=== PATIENT | female | born 1940 | race Caucasian/White ===

== ENCOUNTER 2017-04-15 09:54 | Outpatient (CLI) | payer MEDICARE ==
--- NOTE | 2017-04-15 14:43 | MRI ---
MRI RIGHT SHOULDER WITHOUT CONTRAST: Date: 04/15/17 HISTORY: Right shoulder pain, rotator cuff tear, M25.511. COMPARISON: None. FINDINGS: Biceps Tendon: Extraarticular biceps tendon is normal. Mild interarticular biceps tendinosis. Glenoid Labrum: Intact. Rotator Cuff: There is mild tendinosis of the supraspinatus and infraspinatus tendons. There is a focal hidden int erstitial tear of the mid fiber supraspinatus footplate involving the majority of the fibers in the transverse dimension, although does not appear to reach the articular bursal surface. This is 5.0 mm in AP dimension. Subscapularis is mildly tendinotic. Teres minor is intact. Bones: Mild osteoarthritic disease of acromioclavicular joint. The acromion is Type II. Mild lateral downsl oping of the acromion with narrowing of subacromial space approximately 5.0 mm. Soft Tissues: Mild subacromial/subdeltoid bursal effusion. No adenopathy of the axilla. Muscles: Muscle signal and bulk is normal. IMPRESSION: 1. Mild lateral downsloping of the acromion causing some subacromial impingement and narrowing of t he subacromial space 5.0 mm. There is subsequent tendinosis and fraying of the myotendinous junction and supraspinatus tendon with mild subacromial/subdeltoid bursal effusion. 2. Near full thickness hidden interstitial tear of the mid fiber supraspinatus tendon measuring 5.0 mm in AP dimension at the supraspinatus footplate. POS: [facility]
== END 2017-04-15 09:55 | disposition home or self-care (01) ==
LOC: MRI 09:54
PROVIDERS: ATTEND Orthopaedic Surgery Hand Surgery
DX: M25.511 Pain in right shoulder (principal); M25.811 Other specified joint disorders, right shoulder; S46.811A Strain of other muscles, fascia and tendons at shoulder and upper arm level, right arm, initial encounter; M25.411 Effusion, right shoulder

== ENCOUNTER 2017-10-17 16:09 | Observation (INO) | payer MEDICARE ==
--- NOTE | 2017-10-17 16:40 | RAD ---
RADIOGRAPH CHEST 1 VIEW: 10/17/17 HISTORY: 77-year-old female with acute chest pain and tachycardia. FINDINGS: There is no air space density, pulmonary edema, or pneumothorax. The lateral costophrenic angles are sharp. IMPRESSION: No acute pulmonary findings. hui [] POS: [facility]
[2017-10-17 16:43] LABS: Hemoglobin 14.7 g/dL (12.0-16.0); Mean Corpuscular HGB CONC 33.7 g/dL (32.0-36.0); Mean Corpuscular Hemoglobin 35.3 pg (27.0-31.0); Mean Platelet Volume 7.5 fL (7.4-10.4); Platelet Count 205 thou/uL (130-400); RBC Distribution Width 11.7 % (11.5-14.5); Red Blood Cell (RBC) Count 4.17 mill/uL (4.20-5.40); White Blood Cell (WBC) Count 7.5 thou/uL (4.8-10.8)
[2017-10-17 16:50] LABS: INR-International Normal Ratio 1.1; PTT 28.1 SEC (22.9-36.1); Prothrombin Time 13.9 SEC (12.0-14.7)
[2017-10-17 16:59] LABS: ALT (SGPT) 17 U/L (8-55); AST (SGOT) 19 U/L (5-34); Albumin 3.8 g/dL (3.4-4.8); Alkaline Phosphatase 56 U/L (40-150); Anion Gap 15 mmol/L (10-20); BUN (Urea Nitrogen) 13 mg/dL (9.8-20.1); Bilirubin, Total 0.4 mg/dL (0.2-1.2); CK (CPK) 71 U/L (29-168); Calc. Creatinine Clearance 0 mL/min (70-130); Calcium 9.4 mg/dL (7.8-10.44); Carbon Dioxide 21 mmol/L (23-31); Chloride 107 mmol/L (98-107); Estimated GFR-MDRD 78; Globulin 3.1 g/dL (2.4-3.5); Glucose 117 mg/dL (83-110); Potassium 3.8 mmol/L (3.5-5.1); Protein, Total 6.9 g/dL (6.0-8.3); Sodium 139 mmol/L (136-145)
[2017-10-17 17:02] LABS: CKMB 1.3 ng/mL (0-6.6); Troponin I Less than 0.010 ng/mL (< 0.028)
[2017-10-17 17:04] LABS: #Basophils 0.1 thou/uL (0.0-0.2); #Eosinphils 0.3 thou/uL (0.0-0.7); #Lymphocytes 2.5 thou/uL (1.20-3.40); #Monocytes 0.7 thou/uL (0.11-0.59); #Neutrophils 3.9 thou/uL (1.40-6.50); %Basophils 0.9 % (0.0-1.0); %Eosinophils 4.6 % (0.0-10.0); %Lymphocytes 32.9 % (21.0-51.0); %Monocytes 9.2 % (0.0-10.0); %Neutrophils 52.4 % (42.0-75.0); MDiff Complete? YES; Macrocytosis SLIGHT = 6-15 cells (100X) (0-5/hpf); PLT Morphology Comment Appears Adequate
[2017-10-17] MEDS ORDERED: Ondansetron ODT 4 MG TAB ONE (17:19)
[2017-10-17] MEDS ORDERED: Acetaminophen 325 MG TAB PO PRN (19:32)
[2017-10-17] MEDS ORDERED: Ondansetron ODT 4 MG TAB PO PRN (19:32)
[2017-10-17] MEDS ORDERED: Ondansetron HCl/PF 4 MG/2 ML Vial IVP PRN (19:32)
[2017-10-17] MEDS ORDERED: Enoxaparin Sodium 40 MG/0.4 ML SYRINGE SC SCH (19:45)
[2017-10-17] MEDS ORDERED: Metoprolol Tartrate 50 MG TAB PO SCH (19:45)
[2017-10-17] MEDS: Famotidine 20 MG TAB PO SCH (19:49)
[2017-10-17] MEDS: Nitroglycerin 2% Ointment 1 INCH/1 GM Packet TOP SCH (21:45)
[2017-10-17 21:54] VITALS: BMI 31.4
[2017-10-17 23:14] LABS: CKMB 1.5 ng/mL (0-6.6); Troponin I 0.012 ng/mL (< 0.028)
[2017-10-18 00:21] LABS: CKMB 1.4 ng/mL (0-6.6); Troponin I Less than 0.010 ng/mL (< 0.028)
[2017-10-18 04:54] LABS: #Basophils 0.1 thou/uL (0.0-0.2); #Eosinphils 0.4 thou/uL (0.0-0.7); #Lymphocytes 2.6 thou/uL (1.20-3.40); #Monocytes 0.7 thou/uL (0.11-0.59); #Neutrophils 2.9 thou/uL (1.40-6.50); %Basophils 1.1 % (0.0-1.0); %Eosinophils 6.1 % (0.0-10.0); %Lymphocytes 39.6 % (21.0-51.0); %Monocytes 10.1 % (0.0-10.0); %Neutrophils 43.2 % (42.0-75.0); Hemoglobin 14.5 g/dL (12.0-16.0); Mean Corpuscular HGB CONC 34.4 g/dL (32.0-36.0); Mean Corpuscular Hemoglobin 35.6 pg (27.0-31.0); Mean Platelet Volume 8.2 fL (7.4-10.4); Platelet Count 187 thou/uL (130-400); RBC Distribution Width 11.8 % (11.5-14.5); Red Blood Cell (RBC) Count 4.09 mill/uL (4.20-5.40); White Blood Cell (WBC) Count 6.6 thou/uL (4.8-10.8)
[2017-10-18 05:15] LABS: Anion Gap 11 mmol/L (10-20); BUN (Urea Nitrogen) 12 mg/dL (9.8-20.1); Calc. Creatinine Clearance 94 mL/min (70-130); Calcium 9.1 mg/dL (7.8-10.44); Carbon Dioxide 24 mmol/L (23-31); Cardiac Risk 3.7 (Less than 4.5); Chloride 108 mmol/L (98-107); Cholesterol 151 mg/dl (< 200 Desired); Estimated GFR-MDRD 86; Glucose 100 mg/dL (83-110); HDL Cholesterol 41 mg/dL (>60 Neg Risk); LDL Cholesterol, Calculated 97 mg/dL; Magnesium 1.8 mg/dL (1.6-2.6); Potassium 3.9 mmol/L (3.5-5.1); Sodium 139 mmol/L (136-145); Triglycerides 67 mg/dL (Less than 150)
[2017-10-18] MEDS: Nitroglycerin 2% Ointment 1 INCH/1 GM Packet TOP SCH ×4 (05:27→19:57)
[2017-10-18] MEDS ORDERED: Naproxen 500 MG TAB PO PRN (09:48)
[2017-10-18] MEDS: Metoprolol Tartrate 25 MG TAB PO SCH ×4 (11:02→19:34)
[2017-10-18] MEDS: Famotidine 20 MG TAB PO SCH ×2 (11:03→19:44)
[2017-10-18] MEDS: Aspirin 325 MG TAB PO SCH (11:04)
--- NOTE | 2017-10-18 12:18 | PDOC.PN ---
- Subjective Encounter Start Date: 10/18/17 Encounter Start Time: 10:15 Pt did well overnight, no further tachyarrhythmias/afib, no Chest pressure, labs reviewed. Discussed briefly with Dr Billings, he has not seen th epatient yet, but based on available data, wants to proceed with stress testing No f/C, no N/v/D/C, no Cp or SOB 10 point ROS performed and neg for all systems except as per hPI - Objective Resuscitation Status: Resuscitation Status FULL:Full Resuscitation Vital Signs & Weight: Vital Signs (12 hours) Temp Pulse Resp BP BP Pulse Ox 10/18/17 11:35 97.9 F 62 16 122/60 93 L 10/18/17 07:58 97.8 F 60 16 10/18/17 07:36 97.4 F L 59 L 16 116/64 95 10/18/17 04:10 97.8 F 60 16 103/59 L 93 L Weight Weight 182 lb 12.8 oz I&O: 10/17/17 10/18/17 10/19/17 06:59 06:59 06:59 Intake Total 240 Output Total 325 800 Balance -85 -800 Result Diagrams: 10/18/17 04:06 10/18/17 04:05 EKG Reviewed by me: Yes Phys Exam - Physical Examination Constitutional: NAD HEENT: PERRLA, moist MMs, sclera anicteric, oral pharynx no lesions Neck: no nodes, no JVD, supple, full ROM Respiratory: no wheezing, no rales, no rhonchi, clear to auscultation bilateral Cardiovascular: RRR, no significant murmur, no rub Gastrointestinal: soft, non-tender, no distention, positive bowel sounds Musculoskeletal: no edema, pulses present Neurological: non-focal, normal sensation, moves all 4 limbs Lymphatic: no nodes Psychiatric: normal affect, A&O x 3 Skin: no rash, normal turgor, cap refill <2 seconds Dx/Plan (1) Paroxysmal A-fib Code(s): I48.0 - PAROXYSMAL ATRIAL FIBRILLATION Status: Acute Comment: in NSR since admitm neg biomarkers, nuc stress ordered, resting today, apparently stress in AM (2) Atrial fibrillation with RVR Code(s): I48.91 - UNSPECIFIED ATRIAL FIBRILLATION Status: Acute Comment: back in NSR overnight, on metoprolol. Held metoprolol for stress testing (3) Chest pain Code(s): R07.9 - CHEST PAIN, UNSPECIFIED Status: Acute Qualifiers: Chest pain type: precordial pain Qualified Code(s): R07.2 - Precordial pain (4) HTN (hypertension) Code(s): I10 - ESSENTIAL (PRIMARY) HYPERTENSION Status: Acute Qualifiers: Hypertension type: essential hypertension Qualified Code(s): I10 - Essential (primary) hypertension (5) Injury of left rotator cuff Code(s): S46.002A - UNSP INJ MUSC/TEND THE ROTATOR CUFF OF L SHOULDER, INIT Status: Chronic Qualifiers: Encounter type: initial encounter Qualified Code(s): S46.002A - Unspecified injury of muscle(s) and tendon(s) of the rotator cuff of left shoulder, initial encounter - Plan cont current plan of care, out of bed/ambulate * .
--- NOTE | 2017-10-18 15:34 | HP ---
PRIMARY CARE PHYSICIAN: Ephraim Tomas M.D. TIME OF SERVICE: 18:10. CHIEF COMPLAINT: Chest pain and palpitations. HISTORY OF PRESENT ILLNESS: Ms. Schmitt is a pleasant 77-year-old white female with history of debbie nary artery disease and "angina" explained to her by her primary care physician. She also has a hist ory of hypertension and a right rotator cuff injury. She presented to the Emergency Department today after having a chest discomfort. She stated she was walking up her stairs and had acute onset of pa lpitations in her chest and a pressure sensation in the upper chest. It radiated up into her left ja w and down into her left arm. She noted she had an increased heart rate. It stopped when she came t o the Emergency Department, but did persist for some time. 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 The timing is dehydrated. She called the EMS who noted that her heart rate was elevated in the 140s dropping down to 75 and peg k up to 145. She was noted to be in atrial fibrillation with RVR and put her back to normal sinus rh ythm. The patient took 2 sublingual nitroglycerins at home, she was given 1 liter of normal saline a nd 324 mg of aspirin, and she was brought to the Emergency Department for workup. On arrival here, she was caught on EKG, both in AFib with RVR and in sinus rhythm. She did have palp itations. She denies any recent bleeding. No sweats, no diaphoresis, no nausea or vomiting. We called for admit. The ER workup was unremarkable. PAST MEDICAL HISTORY: 1. Coronary artery disease. 2. Angina. 3. Hypertension. 4. Right rotator cuff injury. 5. Bone spurs in multiple joints. PAST SURGICAL HISTORY: Include; 1. Bladder lift in the s. 2. Cholecystectomy in the s. 3. Hysterectomy in 1968. MEDICATIONS: 1. Lisinopril 20 mg daily. 2. Atenolol 25 mg p.o. daily. 2. Nitroglycerin sublingual 0.4 mg as needed. 3. Vitamin D3 and vitamin B12 daily. ALLERGIES: CEFPROZIL causes a rash; HYDROCODONE causes a rash; FLU VACCINE causes a rash and PENICIL DELANEY causes a rash, all these were many years ago. FAMILY HISTORY: Significant for dad with coronary artery disease that began in 60s, but at age 86. Her mom noted to be 92. SOCIAL HISTORY: Significant for daily alcohol use in the terms of 2-3 normal size glasses of wine. No IV drug use or tobacco abuse. REVIEW OF SYSTEMS: A 10-point review of systems was performed as negative for all systems except as stated as above. PHYSICAL EXAMINATION: VITAL SIGNS: Temperature 98.6, current pulse 71, blood pressure 121/47, respiratory rate 20 and satt ing 94% on room air. GENERAL: She is awake. She is alert and oriented. She is an obese white female who is in no distre ss. HEENT: Normocephalic and atraumatic. Pupils are equal and reactive to light bilaterally, she wears glasses with bifocals. Mucosa is moist. There is no visible lesion or thrush. NECK: Supple. There is no lymphadenopathy, JVD or thyromegaly. CARDIOVASCULAR: She has normal carotids without bruits. LUNGS: Clear bilaterally. No wheezes, no rales, no rhonchi. Good air movement. She has symmetrica l chest excursion. No prolonged expiratory phase. ABDOMEN: Soft. It is nontender and nondistended. She has good bowel sounds present in all 4 quadra nts. No rebound, rigidity or guarding. EXTREMITIES: Showed no cyanosis or clubbing with trace pedal edema. The patient has 1+ dorsalis ped is and posterior tibial pulses. SKIN: Warm and well perfused. She has no other rashes or lesions. MUSCULOSKELETAL: Normal to inspection. Large joints appear uninflamed. There are no palpable effus ions. She does have crepitus present to the right and left shoulders, right more than left. NEUROLOGIC: Cranial nerves II-XII are grossly intact. She has no focal neurologic deficits. She last s normal speech pattern, 5/5 strength in all 4 extremities. LABORATORY AND IMAGING DATA: Sodium 139, potassium 3.8, chloride 107, bicarb 21, BUN 13, creatinine 0.73, glucose 117 and calcium of 9.4. Liver functions are completely within normal limits. CBC showed a white count of 7.5 with normal differential, hemoglobin IS 14.7, hematocrit of 43.6 and platelet count is 205,000. Her BNP was normal at 48.9, CK-MB normal at 1.3 and troponin I undetectab le, at less than 0.010. INR is 1.1. Chest x-ray showed no acute cardiopulmonary disease. EKG first showed atrial fibrillation with rapid ventricular response, then converted back to sinus rhythm, but sinus rhythm and EKG did look like th ere might be varied conduction block. ASSESSMENT: 1. New onset atrial fibrillation. 2. Atrial fibrillation with rapid ventricular response. 3. Precordial chest pain. 4. Paroxysmal atrial fibrillation. 5. Hypertension. 6. Right rotator cuff injury, old. 7. Obesity. PLAN: We will place the patient in observation, get serial cardiac biomarkers tonight and place her on beta emma with metoprolol 25 b.i.d., oxygen 2 liters continuous, nitro paste one-half inch to t he chest wall and aspirin daily. We will ask Cardiology to evaluate to help us decide which directio n to go should her biomarkers be negative. We will continue other home medications including atenolol and we will reevaluate in the morning.
--- NOTE | 2017-10-18 17:04 | CON ---
CARDIOLOGY CONSULTATION NOTE DATE OF CONSULTATION: 10/18/2017 REASON FOR CONSULTATION: Chest pain and palpitations. HISTORY OF PRESENT ILLNESS: Ms. Schmitt is a very pleasant 77-year-old white fwho comes to the hosp ital for chest pain and palpitations. She had an episode of chest pain, it radiated to the neck. Satish vega felt heart racing as well, so she decided to come into the ER for this. She was found to be in Flo b with RVR and she was found to have a heart rate in the 140s in AFib and she received 2 sublingual n itros and normal saline as well as an aspirin and then her heart suddenly converted back into sinus r hythm with resolution of all her symptoms. She tells me that she had a similar episode about 3 weeks ago that lasted about 20 minutes and since it went away and so she did not think much of it, but thi s time because it lasted for much longer, she decided to come in for evaluation. PAST MEDICAL HISTORY: 1. Hypertension. 2. Rotator cuff injury. 3. Bone spurs in the past. 4. Coronary artery disease; however, she tells me she has never seen a materials planner before. PAST SURGICAL HISTORY: 1. Bladder lift in the 80s. 2. Cholecystectomy. 3. Hysterectomy. OUTPATIENT MEDICATIONS: Include; 1. Lisinopril 20 mg a day. 2. Atenolol 25 mg a day. 3. Nitroglycerin sublingual p.r.n. 4. Vitamin D3. 5. Vitamin B12. ALLERGIES: 1. CEFPROZIL. 2. HYDROCODONE. 3. FLU VACCINE. 4. PENICILLIN. These all cause a rash. FAMILY HISTORY: Positive for coronary artery disease in father in the 60s. SOCIAL HISTORY: 2 to 3 glasses of wine a day. No drug or tobacco use. REVIEW OF SYSTEMS: A 12-point review of systems was done and is also negative unless stated in the h istory of present illness. PHYSICAL EXAMINATION: VITAL SIGNS: Temperature 97.7, pulse 63, respiratory rate 16, satting 94% on room air and blood pres sure 108/53. GENERAL: Awake, alert and oriented x3, in no distress. HEENT: Normocephalic and atraumatic. NECK: Supple. LUNGS: Clear. CARDIOVASCULAR: S1 and S2. No S3 or S4. No murmurs, no rubs. ABDOMEN: Soft with positive bowel sounds. EXTREMITIES: No edema. SKIN: Warm and dry. LABORATORY WORK: Reviewed. CBC unremarkable. Coags were normal. Chemistries were unremarkable. T roponin is negative x3, BNP was 41, triglycerides of 67, cholesterol total of 151, LDL of 97 and HDL of 41. IMAGING DATA: EKG was reviewed, AFib with RVR on admission and then back to sinus rhythm. Telemetry has been reviewed and it has been in sinus rhythm throughout. Chest x-ray was unremarkable. ASSESSMENT AND PLAN: 1. Atrial fibrillation with rapid ventricular response, new onset: Her CHADS-VASc score is 3, so satish vega would be a candidate for full anticoagulation. At this time, we will give subcu Lovenox for full a nticoagulation, so we can plan on possibly heart catheterization if her stress is abnormal. Otherwis e, when she is ready for discharge, we will plan on switching her to Eliquis 5 mg twice a day. 2. Antiarrhythmic therapy. We will start Multaq 400 mg twice a day. 3. Hypertension, well controlled, currently on current regimen. 4. Chest pain: Stress test to be done to make sure that she is not ischemic. Thank you for letting us to participate in the care of your patient. We will follow.
[2017-10-19] MEDS: Famotidine 20 MG TAB PO SCH (11:33)
[2017-10-19] MEDS: Metoprolol Tartrate 25 MG TAB PO SCH (11:33)
[2017-10-19] MEDS: Aspirin 325 MG TAB PO SCH (11:33)
[2017-10-19] MEDS ORDERED: ADENOSINE 60 MG/20 ML VIAL ONE (12:05)
--- NOTE | 2017-10-19 13:11 | NM ---
MYOCARDIAL PERFUSION EVALUATION: INDICATION: Chest pain. RADIOPHARMACEUTICAL: 30.5 mCi Technetium 99m sestamibi IV with stress and 27 mCi Technetium 99m sestamibi IV with rest. FINDINGS: When comparing the rest and stress images, no reversible myocardial perfusion defect is evident. The re is normal wall motion and thickening. The estimated LVEF is 76%. The exam is compared to a prior dated 02/10/13. No appreciable change is seen from this comparison study. IMPRESSION: 1. No scintigraphic evidence to suggest reversible myocardial ischemia. 2. Estimated left ventricular ejection fraction of 76%. POS: [facility]
[2017-10-19] MEDS: Nitroglycerin 2% Ointment 1 INCH/1 GM Packet TOP SCH (15:02)
[2017-10-19 15:56] VITALS: BP 122/58; TEMP 97.8
--- NOTE | 2017-10-19 16:15 | DIS ---
DATE OF ADMISSION: 10/17/2017 DATE OF DISCHARGE: 10/19/2017 PRIMARY CARE PHYSICIAN: Ephraim Tomas M.D. DISCHARGE DIAGNOSES: 1. Atrial fibrillation. 2. Chest pain. CONSULTATIONS DURING THIS HOSPITALIZATION: Cardiology, Dr. Cristiano Billings. CONDITION OF PATIENT ON THE DAY OF DISCHARGE: Stable. I assessed Ms. Schmitt on the day of dischar . She denies any chest pain or shortness of breath. Vital signs are stable. S1 and S2 are heard, regular. Lungs are clear to auscultation bilaterally. DISCHARGE MEDICATIONS: Her atenolol was stopped. DISCHARGE MEDICATIONS: Include apixaban 5 mg 2 times a day, vitamin B12 2000 mcg daily, lisinopril 2 0 mg daily, metoprolol tartrate 25 mg 2 times a day, naproxen 500 mg 2 times a day, and Cod liver oil 1 capsule daily. HOSPITAL COURSE: Ms. Schmitt is a pleasant 77-year-old lady who was admitted to [facility] for chest pain as well as atrial fibrillation. She was seen by Cardiology Service. S he has been started on anticoagulation. She underwent a nuclear stress test on 10/18/2017, which did not show any evidence to suggest reversible myocardial ischemia. Her estimated left ventricular eje ction fraction was 76%. She will need to follow up with Cardiology Service in 1 month's time. She is also advised to follow up with her primary care physician in 3-5 days. Many thanks for allowing me to participate in your patient's care. Please feel free to contact me wi th any questions or concerns. During this hospitalization, she had triglyceride 67, cholesterol 151, LDL cholesterol 97, and HDL ch olesterol 41. She had normal troponins. BNP was normal at 41.9. On 10/18/2017, she had a normal cr eatinine of 0.67. Her hemoglobin that day was 14.5.
[2017-10-19] MEDS ORDERED: Dronedarone HCl 400 MG TAB PO SCH (17:00)
[2017-10-19] MEDS ORDERED: Apixaban 5 MG TAB PO SCH (21:00)
== END 2017-10-19 17:07 | disposition home or self-care (01) ==
LOC: ERS 16:09 → 2SW 19:28
PROVIDERS: ADMIT Internal Medicine Infectious Disease; ATTEND Internal Medicine Infectious Disease
DX: I48.0 Paroxysmal atrial fibrillation (principal); R07.2 Precordial pain; I10 Essential (primary) hypertension; I25.119 Atherosclerotic heart disease of native coronary artery with unspecified angina pectoris; E66.9 Obesity, unspecified; Z68.31 Body mass index [BMI] 31.0-31.9, adult; Z79.899 Other long term (current) drug therapy; Z88.1 Allergy status to other antibiotic agents; Z88.5 Allergy status to narcotic agent; Z88.0 Allergy status to penicillin; Z88.7 Allergy status to serum and vaccine; Z90.710 Acquired absence of both cervix and uterus; Z90.49 Acquired absence of other specified parts of digestive tract; Z82.49 Family history of ischemic heart disease and other diseases of the circulatory system
CPT/HCPCS: 71045; 78452; 80048; 80053; 80061; 82550; 82553 ×2; 83735; 83880; 84484 ×2; 85025 ×2; 85610; 85730; 93005; 93017; 96372; 99285; A9500; G0378; 36415; J0153; J1650; Q0162

== ENCOUNTER 2018-04-01 10:34 | Emergency (ER) | payer MEDICARE ==
[2018-04-01 11:09] LABS: #Basophils 0.1 thou/uL (0.0-0.2); #Eosinphils 0.2 thou/uL (0.0-0.7); #Lymphocytes 1.5 thou/uL (1.20-3.40); #Monocytes 0.4 thou/uL (0.11-0.59); #Neutrophils 4.2 thou/uL (1.40-6.50); %Basophils 0.9 % (0.0-1.0); %Eosinophils 2.9 % (0.0-10.0); %Lymphocytes 24.2 % (21.0-51.0); %Monocytes 5.6 % (0.0-10.0); %Neutrophils 66.4 % (42.0-75.0); Hemoglobin 15.1 g/dL (12.0-16.0); Mean Corpuscular HGB CONC 32.6 g/dL (32.0-36.0); Mean Corpuscular Hemoglobin 33.6 pg (27.0-31.0); Mean Platelet Volume 7.4 fL (7.4-10.4); Platelet Count 188 thou/uL (130-400); RBC Distribution Width 11.7 % (11.5-14.5); Red Blood Cell (RBC) Count 4.48 mill/uL (4.20-5.40); White Blood Cell (WBC) Count 6.3 thou/uL (4.8-10.8)
[2018-04-01 11:15] LABS: INR-International Normal Ratio 1.2; PTT 29.2 SEC (22.9-36.1); Prothrombin Time 14.9 SEC (12.0-14.7)
[2018-04-01 11:28] LABS: Anion Gap 10 mmol/L (10-20); BUN (Urea Nitrogen) 11 mg/dL (9.8-20.1); Calc. Creatinine Clearance 0 mL/min (70-130); Calcium 9.4 mg/dL (7.8-10.44); Carbon Dioxide 27 mmol/L (23-31); Chloride 103 mmol/L (98-107); Estimated GFR-MDRD 71; Glucose 140 mg/dL (83-110); Potassium 4.2 mmol/L (3.5-5.1); Sodium 136 mmol/L (136-145)
--- NOTE | 2018-04-01 12:10 | RAD ---
RIGHT ANKLE THREE VIEWS: History: 77-year-old female with right leg swelling and joint pain. FINDINGS: Medial and lateral soft tissue swelling. Mild degenerative changes. No acute fracture or dislocation. IMPRESSION: Degenerative changes without acute fracture or dislocation. POS: [facility]
--- NOTE | 2018-04-01 12:11 | RAD ---
RIGHT FOOT THREE VIEWS: History: 77-year-old female with history of right foot pain and swelling. FINDINGS: Minimal generalized soft tissue swelling of the lower leg and ankle. Mild degenerative changes. No ac chippewa-cree fracture or dislocation. IMPRESSION: Minimal generalized swelling of the lower leg and ankle. No fracture, dislocation, or other acute pro cess. POS: [facility]
--- NOTE | 2018-04-01 12:12 | RAD ---
RIGHT KNEE FOUR VIEWS: History: Right knee pain and swelling. FINDINGS/IMPRESSION: Degenerative changes are present. There is chondrocalcinosis. No fracture or dislocation or bony dest ruction is identified. POS: [facility]
--- NOTE | 2018-04-01 12:13 | ULT ---
VENOUS DOPPLER ULTRASOUND OF THE RIGHT LOWER EXTREMITY: Technique: Grayscale, color flow, and spectral doppler imaging of the deep venous system of the right lower extremity is performed. FINDINGS: There is good flow, augmentation, compression noted in the right common femoral, femoral, deep femora l, popliteal, posterior tibial, and greater saphenous veins. IMPRESSION: No evidence of DVT in the right lower extremity. POS: [facility]
== END 2018-04-01 12:44 | disposition home or self-care (01) ==
LOC: ERS 10:34
DX: M79.89 Other specified soft tissue disorders (principal); M25.561 Pain in right knee; M25.571 Pain in right ankle and joints of right foot; I25.2 Old myocardial infarction; I49.9 Cardiac arrhythmia, unspecified; I48.91 Unspecified atrial fibrillation; I10 Essential (primary) hypertension; Z79.899 Other long term (current) drug therapy
CPT/HCPCS: 36415; 80048; 85025; 85610; 85730

== ENCOUNTER 2018-08-11 13:09 | Outpatient (CLI) | payer MEDICARE ==
--- NOTE | 2018-08-11 13:38 | RAD ---
TWO VIEWS OF THE CHEST: COMPARISON: 06/26/2010. HISTORY: Cough. FINDINGS: Two views of the chest show a cardiomediastinal silhouette which is upper limits of normal in size. There is no evidence of consolidation, mass, or pleural effusion. Degenerative changes are seen in t he spine. Cholecystectomy clips are seen. IMPRESSION: No evidence of acute cardiopulmonary disease. POS: [facility]
== END 2018-08-11 13:10 | disposition home or self-care (01) ==
LOC: RAD-FRANK 13:09
PROVIDERS: ATTEND Nurse Practitioner Family
DX: R05 Cough (principal); R35.0 Frequency of micturition
CPT/HCPCS: 71046; 87077; 87086; 87186

== ENCOUNTER 2019-05-03 12:14 | Outpatient (CLI) | payer MEDICARE ==
[2019-05-03] MEDS ORDERED: Gadobenate Dimeglumine 529 MG/1 ML (20ML VIAL) ONE (12:31)
[2019-05-03 13:12] LABS: Estimated GFR-MDRD - POC Greater than 90
--- NOTE | 2019-05-03 14:24 | MRI ---
Exam: Brain MRI with and without contrast HISTORY: Memory loss. Vertigo. Difficulty with saying words. Ataxia. COMPARISON: None FINDINGS: Gradient echo sequence: No hemorrhage Calvarium: Appropriate T1 marrow signal intensity Midline brain parenchyma: Unremarkable Cerebrum:No parenchymal mass, mass effect or midline shift. Significant cerebral atrophy. Cortical gr ay-white matter differentiation is preserved. Confluent T2 and FLAIR white matter hyperintensities due to chronic small vessel ischemic change. Ventricles: No evidence of hydrocephalus. Sinuses and mastoid air cells: Adequate aeration Diffusion: Central arterial flow is maintained. Absent restricted diffusion. Postcontrast images: No pathologic enhancement of the brain parenchyma. IMPRESSION: 1. No pathologic enhancement of the brain parenchyma. 2. Significant cerebral atrophy. 3. Extensive chronic small vessel ischemic changes white matter. 4. Absent restricted diffusion. No acute infarct.
== END 2019-05-03 12:15 | disposition home or self-care (01) ==
LOC: BICMRI 12:14
PROVIDERS: ATTEND Family Medicine
DX: R27.0 Ataxia, unspecified (principal)
CPT/HCPCS: 70553; 82565; A9577

== ENCOUNTER 2019-08-13 05:45 | Day surgery (SDC) | payer MEDICARE ==
[2019-08-09 11:58] VITALS: BMI 34.5
[2019-08-13] MEDS ORDERED: Diazepam 5 MG TAB ONE (06:48)
[2019-08-13] MEDS ORDERED: Midazolam HCl 2 mg/2 ml Vial ONE (08:48)
[2019-08-13] MEDS ORDERED: Fentanyl 100 MCG/2 ML VIAL ONE (08:54)
[2019-08-13] MEDS ORDERED: Iopamidol 370 76% 100 ML VIAL ONE (09:46)
== END 2019-08-13 12:55 | disposition home or self-care (01) ==
LOC: CCL 05:45
PROVIDERS: ATTEND Internal Medicine Cardiovascular Disease
PROC: 4A023N7 Measurement of Cardiac Sampling and Pressure, Left Heart, Percutaneous Approach (ICD-10-PCS; principal; 2019-08-13)
PROC: B2111ZZ Fluoroscopy of Multiple Coronary Arteries using Low Osmolar Contrast (ICD-10-PCS; 2019-08-13)
DX: R07.89 Other chest pain (principal); I10 Essential (primary) hypertension; I25.10 Atherosclerotic heart disease of native coronary artery without angina pectoris; I48.0 Paroxysmal atrial fibrillation; I35.1 Nonrheumatic aortic (valve) insufficiency; Z79.01 Long term (current) use of anticoagulants; Z79.899 Other long term (current) drug therapy; Z88.0 Allergy status to penicillin; Z88.1 Allergy status to other antibiotic agents; Z88.5 Allergy status to narcotic agent; Z88.7 Allergy status to serum and vaccine
CPT/HCPCS: 93458; 99152; C1769; J2250; J3010; Q9967

== ENCOUNTER 2020-03-05 12:40 | Emergency (ER) | payer MEDICARE ==
--- NOTE | 2020-03-05 14:51 | CT ---
Exam: Head CT without contrast HISTORY: Trauma. Fall. COMPARISON: none FINDINGS: Hemorrhage: No intraparenchymal hemorrhage or extra-axial hematoma. Brain parenchyma: Cortical collins-white matter differentiation is preserved. No mass effect or midline shift. Basilar cisterns are patent.Confluent white matter hypodensities due to chronic small vessel ischemic change. Superimposed white matter infarct cannot be entirely excluded. Ventricular system: Ventricles and sulci are patent and symmetric. Calvarium: Intact Sinuses and mastoid air cells: Minimal opacification of the posterior right mastoid air cells IMPRESSION: 1. No intracranial posttraumatic sequelae 2. Confluent white matter hypodensities which are presumed to be due to chronic small vessel ischemic change. White matter hypoattenuation is similar to FLAIR hyperintensity on a brain MRI from 05/03/2019. If there is concern for acute white matter infarct, consider brain MRI.
--- NOTE | 2020-03-05 14:53 | CT ---
Exam: CT cervical spine without contrast HISTORY: Trauma. Pain. COMPARISON: None FINDINGS: No craniocervical dissociation. Appropriate alignment of the lateral masses of C1 and C2. Intact odon toid process Appropriate alignment of the facets. Straightening of normal cervical lordosis is presumed to be due to patient position, muscle spasm or cervical collar. Soft tissue neck structures: No mass, lymphadenopathy or hematoma. No prevertebral soft tissue swelli ng. Upper mediastinum and lung apices: Unremarkable Central spinal canal: Neural foramina and central spinal canal are patent. Evaluation is limited by t echnique Vertebral bodies: Cervical spine vertebral body height is maintained. No fracture. IMPRESSION: 1. No fracture 2. Straightening of normal cervical lordosis as detailed above. If there is concern for ligamentous i njury, consider MRI.
--- NOTE | 2020-03-05 14:55 | RAD ---
Exam:2 views left hip HISTORY: Trauma. Pain. Fall. COMPARISON: None FINDINGS: Mild to moderate loss of joint space height. Contour of the femoral head is maintained. No fracture. Visualized sacrum and bony pelvis are intact. IMPRESSION: No fracture. Mild to moderate loss of joint space height.
--- NOTE | 2020-03-05 14:56 | RAD ---
EXAM: CHEST ONE VIEW THREE VIEWS LEFT RIBS: HISTORY: Fall. Pain. Trauma. COMPARISON: Single view chest 10/17/2017 FINDINGS: One view chest: Atherosclerosis of the aorta. Normal cardiac silhouette. No pleural effusion. Scattered reticular nodular opacities, nonspecific. No consolidation. No masses. No pneumothorax or a cute osseous abnormalities. Left rib series: No fracture, cortical irregularity or periosteal reaction. IMPRESSION: 1. Reticular nodular opacities. Correlate for edema or infiltrate. 2. No fracture. Transcribed Date/Time: 03/05/2020 3:13 PM
== END 2020-03-05 16:00 | disposition home or self-care (01) ==
LOC: ERS 12:40
DX: S20.212A Contusion of left front wall of thorax, initial encounter (principal); M54.2 Cervicalgia; M25.552 Pain in left hip; I25.2 Old myocardial infarction; I10 Essential (primary) hypertension; I48.91 Unspecified atrial fibrillation; Z79.01 Long term (current) use of anticoagulants; Z79.899 Other long term (current) drug therapy; W18.30XA Fall on same level, unspecified, initial encounter; Y92.89 Other specified places as the place of occurrence of the external cause
CPT/HCPCS: 70450; 72125; 93005

== ENCOUNTER 2021-01-12 11:42 | Outpatient (CLI) | payer MEDICARE ==
[2021-01-13 17:04] LABS: SARS-CoV-2 PCR by NAA Not Detected (NotDetected)
== END 2021-01-12 11:43 | disposition home or self-care (01) ==
LOC: LABBT 11:42
PROVIDERS: ATTEND Internal Medicine Cardiovascular Disease
DX: Z01.818 Encounter for other preprocedural examination (principal); I48.0 Paroxysmal atrial fibrillation; R29.6 Repeated falls; Z20.822 Contact with and (suspected) exposure to COVID-19
CPT/HCPCS: 80053; 81001; 85025; 85610; 85730; 86148; 86850; 86900; 86901; 93005; U0003; U0005; 93010

== ENCOUNTER 2021-03-02 10:20 | Outpatient (CLI) | payer MEDICARE ==
[2021-03-02 12:05] LABS: Hemoglobin 13.8 g/dL (12.0-15.5); Mean Corpuscular HGB CONC 33.5 g/dL (32.0-36.0); Mean Corpuscular Hemoglobin 33.3 pg (27.0-33.0); Mean Corpuscular Volume 99.5 fl (81.6-98.3); Platelet Count 199 10x3/uL (150-450); RBC Distribution Width 12.7 % (11.5-14.5); Red Blood Cell (RBC) Count 4.14 10x6/uL (3.90-5.03); White Blood Cell (WBC) Count 6.3 10x3/uL (3.5-10.5)
[2021-03-02 12:21] LABS: Anion Gap 14 mmol/L (10-20); BUN (Urea Nitrogen) 7 mg/dL (9.8-20.1); Calc. Creatinine Clearance 0 mL/min (70-130); Calcium 9.5 mg/dL (7.8-10.44); Carbon Dioxide 26 mmol/L (23-31); Chloride 103 mmol/L (98-107); Glucose 218 mg/dL (83-110); Potassium 3.2 mmol/L (3.5-5.1); Sodium 140 mmol/L (136-145)
[2021-03-02 12:26] LABS: PTT 24.5 sec (22.0-33.0); Prothrombin Time 11.1 sec (9.5-12.1)
[2021-03-03 00:03] LABS: SARS-CoV-2 PCR by NAA Not Detected (NotDetected)
== END 2021-03-02 10:21 | disposition home or self-care (01) ==
LOC: LABBT 10:20
PROVIDERS: ATTEND Internal Medicine Cardiovascular Disease
DX: Z01.818 Encounter for other preprocedural examination (principal); I48.91 Unspecified atrial fibrillation; Z20.822 Contact with and (suspected) exposure to COVID-19
CPT/HCPCS: 80048; 85027; 85610; 85730; 93005; U0003; U0005; 93010

== ENCOUNTER 2021-03-07 06:14 | Day surgery (SDC) | payer MEDICARE ==
[2021-03-05 14:50] VITALS: BMI 34.0
[2021-03-07] MEDS ORDERED: PROPOFOL 20 ML ONE (07:51)
== END 2021-03-07 09:23 | disposition home or self-care (01) ==
LOC: CCL 06:14
PROVIDERS: ATTEND Internal Medicine Cardiovascular Disease
PROC: B24BZZ4 Ultrasonography of Heart with Aorta, Transesophageal (ICD-10-PCS; principal; 2021-03-07)
PROC: B24CZZ4 Ultrasonography of Pericardium, Transesophageal (ICD-10-PCS; 2021-03-07)
DX: I48.0 Paroxysmal atrial fibrillation (principal); I08.0 Rheumatic disorders of both mitral and aortic valves; Z79.01 Long term (current) use of anticoagulants; Z79.82 Long term (current) use of aspirin; Z79.899 Other long term (current) drug therapy; Z88.0 Allergy status to penicillin; Z88.1 Allergy status to other antibiotic agents; Z88.5 Allergy status to narcotic agent; Z88.7 Allergy status to serum and vaccine; Z95.818 Presence of other cardiac implants and grafts
CPT/HCPCS: 93312; J2704

== ENCOUNTER 2022-04-01 18:00 | Outpatient (CLI) | payer MEDICARE | END 2022-04-01 18:01 | disposition home or self-care (01) | LOC: SLEEPLAB 18:00 | PROVIDERS: ATTEND Family Medicine | DX: G47.10 Hypersomnia, unspecified (principal); G47.9 Sleep disorder, unspecified; R53.83 Other fatigue; R51.9 Headache, unspecified; I10 Essential (primary) hypertension; I25.10 Atherosclerotic heart disease of native coronary artery without angina pectoris; G47.00 Insomnia, unspecified; R06.83 Snoring | CPT/HCPCS: 95800 ==

== ENCOUNTER 2023-03-03 12:51 | Emergency (ER) | payer MEDICARE ==
[2023-03-03 13:29] LABS: #Basophils 0.1 thou/uL (0.0-0.2); #Eosinphils 0.4 thou/uL (0.0-0.7); #Monocytes 1.1 thou/uL (0.11-0.59); #Neutrophils 8.8 thou/uL (1.40-6.50); %Basophils 0.5 % (0.0-1.0); %Eosinophils 3.1 % (0.0-10.0); %Lymphocytes 18.9 % (21.0-51.0); %Monocytes 8.3 % (0.0-10.0); %Neutrophils 68.7 % (42.0-75.0); Hematocrit 40.2 % (36.0-47.0); Hemoglobin 13.4 g/dL (12.0-16.0); Mean Corpuscular HGB CONC 33.3 g/dL (32.0-36.0); Mean Corpuscular Hemoglobin 34.2 pg (27.0-31.0); Mean Corpuscular Volume 102.6 fl (78.0-98.0); Mean Platelet Volume 9.7 fL (7.4-10.4); Platelet Count 206 10x3/uL (130-400); RBC Distribution Width 13.5 % (11.5-14.5); Red Blood Cell (RBC) Count 3.92 mill/uL (4.20-5.40); White Blood Cell (WBC) Count 12.8 10x3/uL (4.8-10.8)
[2023-03-03 13:53] LABS: Troponin I Less than 0.010 ng/mL (< 0.028)
[2023-03-03 13:55] LABS: ALT (SGPT) 13 U/L (8-55); AST (SGOT) 19 U/L (5-34); Albumin 3.5 g/dL (3.4-4.8); Alkaline Phosphatase 68 U/L (40-110); Anion Gap 13 mmol/L (10-20); BUN (Urea Nitrogen) 10 mg/dL (9.8-20.1); Bilirubin, Total 0.5 mg/dL (0.2-1.2); Calc. Creatinine Clearance 0 mL/min (70-130); Calcium 9.2 mg/dL (7.8-10.44); Carbon Dioxide 24 mmol/L (23-31); Chloride 102 mmol/L (98-107); Estimated GFR 76; Globulin 3.5 g/dL (2.4-3.5); Glucose 284 mg/dL (83-110); Potassium 3.9 mmol/L (3.5-5.1); Sodium 135 mmol/L (136-145)
== END 2023-03-03 18:30 | disposition home or self-care (01) ==
LOC: ERS 12:51
DX: S09.90XA Unspecified injury of head, initial encounter (principal); S22.41XA Multiple fractures of ribs, right side, initial encounter for closed fracture; R55 Syncope and collapse; R73.9 Hyperglycemia, unspecified; I48.91 Unspecified atrial fibrillation; I10 Essential (primary) hypertension; Z79.82 Long term (current) use of aspirin
CPT/HCPCS: 36415; 70450; 71046; 72125; 80053; 84484; 85025; 93005

== ENCOUNTER 2023-08-07 12:18 | Emergency (ER) | payer MEDICARE | END 2023-08-07 15:02 | disposition home or self-care (01) | LOC: ERS 12:18 | DX: M25.552 Pain in left hip (principal); M25.561 Pain in right knee; I10 Essential (primary) hypertension; Z79.82 Long term (current) use of aspirin ==

== ENCOUNTER 2024-07-09 17:12 | Emergency (ER) | payer MEDICARE | END 2024-07-09 19:28 | disposition home or self-care (01) | LOC: ERS 17:12 | DX: M25.511 Pain in right shoulder (principal); I10 Essential (primary) hypertension; I48.91 Unspecified atrial fibrillation; I25.2 Old myocardial infarction; Z79.82 Long term (current) use of aspirin; Z79.899 Other long term (current) drug therapy; W19.XXXA Unspecified fall, initial encounter | CPT/HCPCS: 99283 ==